=== PATIENT | female | born 1985 | race Caucasian/White ===

== ENCOUNTER 2018-12-22 19:00 | Emergency (ER) | payer SELFPAY ==
--- NOTE | 2018-12-22 19:34 | ER Document Report ---
ED Medical Screen (RME) - General Chief Complaint: Possible Kidney Stone Stated Complaint: FLANK PAIN Time Seen by Provider: 12/22/18 19:29 - HPI Notes: 12/22/18 19:32 Patient is a 33-year-old female who presents complaining of bilateral low back pain that is been present for 8 days. Patient is not sure if this is a kidney infection or not. The pain is constant and does not radiate. Denies any injury or precipitating event. Patient states that she did have her. Start 2 days after the pain started. She is otherwise urinating normally and having normal bowel movements. No other vaginal odor or discharge. Patient states that she is starting to notice some anterior abdominal discomfort, but is described as mild which started today. No fever. She has had occasional nausea. No vomiting. I have treated and performed a rapid initial assessment of this patient. A comprehensive ED assessment and evaluation of the patient, analysis of test results and completion of medical decision making process will be conducted by additional ED providers. PHYSICAL EXAMINATION: GENERAL: Well-appearing, well-nourished and in no acute distress. A&Ox4. Answers questions appropriately. abd: + mild mid abd tenderness (limited exam in triage) Back: + tenderness to palp L-paraspinal mm b/l. ?CVA tenderness as she is already tender to light palp. Physical Exam - Vital signs Vitals: Temp Pulse Resp BP Pulse Ox 98.9 F 71 18 144/77 H 100 12/22/18 19:21 12/22/18 19:21 12/22/18 19:21 12/22/18 19:21 12/22/18 19:21 Course - Vital Signs Vital signs: Temp Pulse Resp BP Pulse Ox 98.9 F 71 18 144/77 H 100 12/22/18 19:21 12/22/18 19:21 12/22/18 19:21 12/22/18 19:21 12/22/18 19:21
[2018-12-22 20:21] LABS: ABSOLUTE BASOPHILS # (AUTO) 0.1 10^3/uL (0.0-0.2); ABSOLUTE EOSINOPHILS # (AUTO) 0.1 10^3/uL (0.0-0.6); ABSOLUTE LYMPHOCYTES (AUTO) 2.2 10^3/uL (0.5-4.7); ABSOLUTE MONOCYTES (AUTO) 1.3 10^3/uL (0.1-1.4); ABSOLUTE NEUT (AUTO) 7.1 10^3/uL (1.7-8.2); BASOPHILS % (AUTO) 0.5 % (0-2); EOSINOPHILS % (AUTO) 0.6 % (0-6); HEMATOCRIT 38.7 % (36.0-47.0); LYMPHOCYTES % (AUTO) 20.7 % (13-45); MEAN CORPUSCULAR HEMOGLOBIN 31.2 pg (27.0-33.4); MEAN CORPUSCULAR HGB CONC 33.6 g/dL (32.0-36.0); MEAN CORPUSCULAR VOLUME 93 fl (80-97); PLATELET COUNT 336 10^3/uL (150-450); RED BLOOD COUNT 4.17 10^6/uL (3.72-5.28); RED CELL DISTRIBUTION WIDTH 12.6 % (11.5-14.0); SEGMENTED NEUTROPHILS % (AUTO) 66.2 % (42-78); TOTAL CELLS COUNTED % (AUTO) 100 %; WHITE BLOOD COUNT 10.8 10^3/uL (4.0-10.5)
[2018-12-22 20:25] LABS: APPEARANCE,URINE CLEAR; BILIRUBIN,URINE NEGATIVE (NEGATIVE); COLOR,URINE STRAW; GLUCOSE, URINE NEGATIVE (NEGATIVE); KETONES,URINE NEGATIVE (NEGATIVE); PROTEIN,URINE NEGATIVE (NEGATIVE); URINE SPECIFIC GRAVITY 1.002; UROBILINOGEN,URINE NEGATIVE mg/dL (<2.0)
[2018-12-22 20:41] LABS: BLOOD UREA NITROGEN 7 mg/dL (7-20); CALCIUM 10.2 mg/dL (8.4-10.2); GLUCOSE 102 mg/dL (75-110)
[2018-12-22 20:42] LABS: ALBUMIN 4.2 g/dL (3.5-5.0); ALKALINE PHOSPHATASE 65 U/L (38-126); ANION GAP 10 (5-19); ASPARTATE AMINO TRANSFERASE 17 U/L (14-36); BILIRUBIN,DIRECT 0.1 mg/dL (0.0-0.4); BILIRUBIN,TOTAL 0.3 mg/dL (0.2-1.3); CARBON DIOXIDE 28 mmol/L (22-30); CHLORIDE 100 mmol/L (98-107); POTASSIUM 3.8 mmol/L (3.6-5.0); TOTAL PROTEIN 7.4 g/dL (6.3-8.2)
--- NOTE | 2018-12-22 22:24 | ER Document Report ---
ED GI/ - General Chief Complaint: Flank Pain Stated Complaint: FLANK PAIN Time Seen by Provider: 12/22/18 19:29 Mode of Arrival: Ambulatory Information source: Patient TRAVEL OUTSIDE OF THE [place] IN LAST 30 DAYS: No - HPI Notes: 12/22/18 22:45 This is a 33-year-old female with no prior medical problems presents complaining of approximately 8 days of bilateral lower back pain. Patient states she has been taking [id number] ibuprofen for symptoms. Patient states that she has been taking approximately 400 mg of ibuprofen every 4 hours. Patient states despite doing this symptoms are worsening as far as her back pain. Patient states she is also had some nausea with the back pain along with some slight dysuria that started earlier today. Patient denies fever, recent trauma, right lower quadrant pain, vomiting. Patient states that the back pain has been enough to interrupt her sleep. Patient denies possibility being . Patient states that she does not usually get urinary tract infections and takes no other medications other than Motrin. Patient states that she has some lower central abdominal pain. Patient denies localized right lower quadrant pain. Differential diagnosis: Acute cystitis, pyelonephritis, appendicitis, ectopic , early . Assessment: 33-year-old female with no prior medical history presenting with bilateral low back pain x8 days and dysuria x1 day. Plan: Check CBC, CMP, urinalysis, urine . - Related Data Allergies/Adverse Reactions: No Known Allergies Allergy (Unverified 12/22/18 22:50) Past Medical History - General Information source: Patient - Social History Smoking Status: Current Every Day Smoker Family History: Reviewed & Not Pertinent Patient has suicidal ideation: No Patient has homicidal ideation: No - Past Medical History Cardiac Medical History: Reports: None Review of Systems - Review of Systems Constitutional: Malaise. denies: Fever EENT: No symptoms reported Cardiovascular: No symptoms reported Respiratory: No symptoms reported Gastrointestinal: Abdominal pain Genitourinary: Dysuria, Flank pain Female Genitourinary: No symptoms reported Musculoskeletal: Back pain Skin: No symptoms reported Hematologic/Lymphatic: No symptoms reported Neurological/Psychological: No symptoms reported -: Yes All other systems reviewed and negative Physical Exam - Vital signs Vitals: Temp Pulse Resp BP Pulse Ox 98.9 F 71 18 144/77 H 100 12/22/18 19:21 12/22/18 19:21 12/22/18 19:21 12/22/18 19:21 12/22/18 19:21 - General General appearance: Appears well In distress: None - HEENT Head: Normocephalic, Atraumatic Eyes: Normal Conjunctiva: Normal - Respiratory Respiratory status: No respiratory distress Chest status: Nontender Breath sounds: Normal Chest palpation: Normal - Cardiovascular Rhythm: Regular Heart sounds: Normal auscultation Murmur: No - Abdominal Inspection: Normal Distension: No distension Tenderness: Nontender. No: McBurney's point, Lancaster's sign Organomegaly: No organomegaly - Back Back: CVA tenderness - Exam positive for bilateral CVA tenderness on light percussion - Extremities General upper extremity: Normal inspection General lower extremity: Normal inspection - Neurological Neuro grossly intact: Yes Cognition: Normal Orientation: AAOx4 Teri Coma Scale Eye Opening: Spontaneous Teri Coma Scale Verbal: Oriented [place] Coma Scale Motor: Obeys Commands [place] Coma Scale Total: 15 - Psychological Associated symptoms: Normal affect, Normal mood - Skin Skin Temperature: Warm Skin Moisture: Dry Skin Color: Normal Course - Re-evaluation Re-evalutation: 12/22/18 22:54 Patient is in no acute distress at time of exam. Patient is sitting up in a chair. Patient relates history. All laboratory values have been reviewed by this MD. Patient has a slightly elevated white count, positive leukocyte esterase in her urine and red blood cells. 12/22/18 22:56 Assessment diagnosis and plan: Pyelonephritis. Plan is to give patient first dose of Levaquin here in the ED along with 1 dose of Toradol orally in the ED. Discussed with patient plan to write for another 4 days of Levaquin 750 mg, 1 p.o. daily. Patient was instructed to take 600 mg of [id number] Motrin 3 times a day with food. Patient was informed of her laboratory findings, differential diagnosis, most likely diagnosis based on her lab work clinical appearance and symptoms. Patient informed of plan of care and expresses understanding of diagnosis and plan of care as discussed with her. Patient states that all questions were answered. Patient is aware and expresses understanding that she is to return to the emergency department at any time if she has any worsening of symptoms despite taking medications as discussed and prescribed. Patient will be given discharge instructions on pyelonephritis and general instructions to return to the ED at any time if she is worse instead of better despite following treatment as prescribed and discussed. - Vital Signs Vital signs: Temp Pulse Resp BP Pulse Ox 98.9 F 71 18 144/77 H 100 12/22/18 19:21 12/22/18 19:21 12/22/18 19:21 12/22/18 19:21 12/22/18 19:21 - Laboratory Result Diagrams: 12/22/18 20:05 12/22/18 20:05 Laboratory results interpreted by me: 12/22/18 12/22/18 20:05 20:05 WBC 10.8 H Urine Blood SMALL H Leukocyte Esterase Rfl MODERATE H 12/22/18 22:55 Lab values reviewed by me. Discharge - Discharge Clinical Impression: Pyelonephritis Condition: Good Disposition: HOME, SELF-CARE Instructions: Levofloxacin, Pyelonephritis ([facility]) Additional Instructions: Return to the Emergency Department without delay if any worse. Prescriptions: Levofloxacin [Levaquin 750 mg Tablet] 750 mg PO DAILY #4 tablet
[2018-12-22] MEDS ORDERED: KETOROLAC TROMETHAMINE 10 MG TABLET PO ONE (22:42)
[2018-12-22] MEDS ORDERED: LEVOFLOXACIN 750 MG TABLET PO ONE (22:42)
[2018-12-22 23:20] VITALS: BP 114/55
== END 2018-12-22 23:20 | disposition home or self-care (01) ==
LOC: ER 19:00
DX: N12 Tubulo-interstitial nephritis, not specified as acute or chronic (principal); M54.5 Low back pain; R11.0 Nausea; F17.200 Nicotine dependence, unspecified, uncomplicated; R53.81 Other malaise
CPT/HCPCS: 36415; 87086; 83690; 85025; 81025; 80053; 81001; J3490; 87088; 87186; 99284